=== PATIENT | female | born 1940 | race Hispanic/Latino ===

== ENCOUNTER 2017-07-17 10:39 | Inpatient (IN) | payer MEDICARE ==
[~2017-07-17 10:39] MED LIST: ANCEF/STERILE WATER 2 GM/20 ML 2 GM/20 ML SYRINGE IV NR
[2017-07-17 11:29] LABS: Basophils % (Auto) 0.9 % (0.0-1.8); Eosinophils % (Auto) 1.7 % (0.0-4.3); Hematocrit 49.2 % (30.3-42.9); Hemoglobin 16.3 gm/dl (10.1-14.3); Mean Corpuscular HGB Conc 33 % (30-34); Mean Corpuscular Hemoglobin 29 pg (28-32); Mean Corpuscular Volume 87 fl (79-97); Platelet Count 227 K/mm3 (140-440); Red Blood Count 5.66 M/mm3 (3.65-5.03); Red Cell Distribution Width 14.9 % (13.2-15.2)
[2017-07-17 11:40] LABS: INR 1.06 (0.87-1.13)
[2017-07-17 11:41] LABS: Partial Thromboplastin Time 33.8 Sec. (24.2-36.6)
[2017-07-17 12:00] LABS: BUN/Creatinine Ratio 21.81; Calcium 10.3 mg/dL (8.4-10.2); Chloride 100.6 mmol/L (98-107); Potassium 4.9 mmol/L (3.6-5.0)
[2017-07-17] MEDS ORDERED: NACL 0.9% 1000 ML 1,000 ML ONE (12:17)
[2017-07-17] MEDS: NACL 0.9% 1000 ML 1,000 ML IV SCH (12:18)
[2017-07-17] MEDS ORDERED: HEPARIN/NS 5000 UNIT/500ML(CATH LAB) 1,000 ML IR ONE (12:38)
[2017-07-17] MEDS ORDERED: VERSED ONE (12:38)
[2017-07-17] MEDS ORDERED: SUBLIMAZE ONE (12:39)
[2017-07-17] MEDS ORDERED: XYLOCAINE 2% INFILTRATI ONE (12:39)
[2017-07-17] MEDS ORDERED: ANCEF/STERILE WATER 2 GM/20 ML 2 GM/20 ML SYRINGE IV ONE (12:40)
[2017-07-17] MEDS ORDERED: HEPARIN/NS 5000 UNIT/500ML(CATH LAB) 500 ML IR ONE ×3 (12:56→13:51)
[2017-07-17] MEDS: HEPARIN 10,000 UNITS/10 ML ONE ×3 (13:11→14:22)
[2017-07-17] MEDS ORDERED: CATHFLO ONE (13:52)
[2017-07-17] MEDS: WATER FOR INJ (PF) 20 ML ONE ×2 (14:06→14:09)
[2017-07-17] MEDS ORDERED: NACL 0.9% 50 ML ONE (14:14)
--- NOTE | 2017-07-17 15:19 | Operative Report ---
Operative Report Operative Report: Date of procedure: 07/17/2017 Pre-operative diagnosis: Acute left leg ischemia Post-operative diagnosis: Same Procedure name(s): 1. Ultrasound-guided placement of the needle into the right common femoral artery. 2. Aortogram. 3. Contralateral cannulation of the left popliteal artery. 4. Left leg angiogram. 5. Percutaneous mechanical thrombectomy with CAT6 penumbra device. 6. Percutaneous mechanical thrombectomy and infusion of TPA with power pulse using AngioJet. 7. Balloon angioplasty of the popliteal artery using a 3 x 40 following by 4 x 40 balloon. 8. Balloon angioplasty of the anterior tibial artery using 3 x 40 balloon. 9. Balloon angioplasty of the TP trunk using 3 x 40 balloon. 10. Directional atherectomy of the popliteal artery using Silver Hawk. 11. Balloon angioplasty of the popliteal artery with drug-eluting balloon using 4 x 100 Lutonix balloon. 12. Completion angiogram. 13. Radiologic supervision and interpretation. 14. Closure of the right common femoral artery with 6 American Angio-Seal device. Surgeon: Jose L Gill MD, RPVI [employer]: None Anesthesia: Local with IV sedation. Findings 1. No significant clot noted in the aorta or iliac bifurcation. 2. No significant stenosis noted in bilateral iliac or femoral arteries. 3. No evidence of stenosis or occlusion of the superficial femoral artery on the left. 4. Acute left occluded left popliteal artery. 5. Complete resolution of clot after the thrombectomy. 6. Nonflow limiting dissection of the distal popliteal artery. 7. Intact 3 vessel runoff. 8. Palpable dorsalis pedis and posterior tibial pulse in the left fourth of the end of the procedure. Specimens: none EBL: Minimal IV fluids: 100 mL Urine output: None Disposition: The recovery Indications: Acute occlusion of left lower extremity. Procedure in detail: Patient was brought to the catheterization lab and laid on the table in supine position. After adequate sedation was achieved both groins were prepped and draped in usual sterile fashion. The ultrasound was used to assess the right common femoral artery. It was found to be of adequate caliber without significant calcium deposits. Under ultrasound guidance and micropuncture needle was directed into the common femoral artery. The tip of the needle was visualized inside the artery. The pictures were saved. The micropuncture wire was advanced without resistance. The needle was removed and the Micropuncture introducer was placed. The Bentson wire was advanced into the aorta. The micropuncture sheath was exchanged to a 5 American sheath. The Sos Omni flush catheter was advanced into the aorta. The aortogram was performed. Expected clot of the aortic bifurcation was not found. In fact no significant lesions were noted in aorta or iliac vessels. The contralateral cannulation was achieved using the Bentson wire and the catheter. The catheter was brought down to the level of the common femoral artery. The left lower extremity angiogram was performed. There was significant finding was an occlusion of the distal popliteal artery. The catheter was advanced down to the distal popliteal artery and the runoff pictures were performed. Patient had three- vessel runoff. The 5 American sheath was exchanged to a 6 x 90 destination sheath. The tip of the sheath was brought to the proximal popliteal artery. Patient received 4000 units of intravenous heparin. The 014 wire was used to cross the popliteal occlusion and the wire was directed into anterior tibial artery. The 6 American penumbra device was used to perform clot aspiration over 014 wire. Almost all the clot was able to be removed based on the follow-up angiography. There was an area at the distal popliteal artery that still appeared to be occluded. This catheter was then exchanged to an AngioJet catheter and the TPA was power pulsed into the lesion. After appropriate amount of time to AngioJet thrombectomy was performed. The follow-up angiography revealed absence of any clot however, he then however the distal popliteal dissection. We used a 3 x 40 and 4 x 40 balloons to try to resolve the dissection however the dissection remained. He did not appear to be flow limiting. We used a Silver Hawk to try to cut out the flap. It was partially successful. The flow did improve. It was further treated using a drug-eluting balloon. The final angiogram revealed a good flow through the popliteal segment and the preserve three-vessel runoff. The long 6 American sheath was exchanged to a short 6 American sheath. In the angiogram of the right common femoral artery showed that the patient was admitted with candidate for a closure device. The arteriotomy was closed using a 6 American Angio-Seal. Hemostasis was achieved. Patient develop all possible left dorsalis pedis and posterior tibial pulse. Patient tolerated procedure well. Procedure []
[2017-07-17] MEDS ORDERED: ZOFRAN IV PRN (15:25)
[2017-07-17] MEDS ORDERED: NORCO 5/325 PO PRN (15:25)
[2017-07-17] MEDS ORDERED: HEPARIN/ 0.45% NACL-25,000 UNIT/500 ML 25,000 UNIT/500 ML BAG IV SCH (16:00)
[2017-07-17 16:19] LABS: Hematocrit 47.5 % (30.3-42.9); Hemoglobin 15.3 gm/dl (10.1-14.3)
[2017-07-17 16:47] LABS: Partial Thromboplastin Time < 20.0 Sec. (24.2-36.6)
[2017-07-17] MEDS: ELIQUIS PO SCH (17:24)
--- NOTE | 2017-07-17 19:45 | Event Note ---
Date: 07/17/17 Contacted re: patient Ray. Told patient had hematuria and nurse discontinued heparin drip. Reviewed chart and noted patient had thrombectomy with aspiration thrombectomy device and angiojet. Angiojet causes rhabdomyoglobinuria, which can be common with the device. Told nurse to restart heparin drip. Told nurse to increase IV fluids to 100 mL/ hr. Told nurse to discontinue heparin drip at 10 pm at time of second dose of Eliquis. Told nurse that patient is NOT having hematuria, but she is having myoglobinuria from the angiojet device. This is not the same thing. Nurse verbalized understanding.
[2017-07-17] MEDS ORDERED: NACL 0.9% 1000 ML 1,000 ML IV SCH (20:00)
[2017-07-17] MEDS: XANAX PO SCH (20:31)
[2017-07-18] MEDS: ELIQUIS PO SCH ×2 (00:09→09:27)
[2017-07-18] MEDS: NACL 0.9% 1000 ML 1,000 ML IV SCH (08:02)
--- NOTE | 2017-07-18 08:28 | Vascular Lab Report ---
MISCELLANEOUS VESSEL IDENTIFICATION: COMMENTS ON THE SCAN: The right common femoral artery was identified and under real-time ultrasound guidance was cannulated. IMPRESSION: Successful ultrasound guided arterial cannulation.
[2017-07-18] MEDS: XANAX PO SCH (09:25)
[2017-07-18 09:26] VITALS: BP 110/67
--- NOTE | 2017-07-18 09:40 | Discharge Summary ---
Providers - Providers Date of Admission: 07/17/17 13:33 Date of discharge: 07/18/17 Attending physician: JOSE L GILL 07/17/17 15:40 Consult to Physician [CONS] Routine Consulting Provider: STAR MEDINA Reason For Exam: Cardiology f/u Place consult to:: Notified:: Phone number called:: [phone] Was contact made?: Yes If yes, spoke with:: LEFT MESSAGE Time called:: 16:35 Comment:: HORACE Primary care physician: STAR MEDINA Hospitalization Reason for admission: Left Popliteal artery occlusion Condition: Good Procedures: Date of procedure: 07/17/2017 Pre-operative diagnosis: Acute left leg ischemia Post-operative diagnosis: Same Procedure name(s): 1. Ultrasound-guided placement of the needle into the right common femoral artery. 2. Aortogram. 3. Contralateral cannulation of the left popliteal artery. 4. Left leg angiogram. 5. Percutaneous mechanical thrombectomy with CAT6 penumbra device. 6. Percutaneous mechanical thrombectomy and infusion of TPA with power pulse using AngioJet. 7. Balloon angioplasty of the popliteal artery using a 3 x 40 following by 4 x 40 balloon. 8. Balloon angioplasty of the anterior tibial artery using 3 x 40 balloon. 9. Balloon angioplasty of the TP trunk using 3 x 40 balloon. 10. Directional atherectomy of the popliteal artery using Silver Hawk. 11. Balloon angioplasty of the popliteal artery with drug-eluting balloon using 4 x 100 Lutonix balloon. 12. Completion angiogram. 13. Radiologic supervision and interpretation. 14. Closure of the right common femoral artery with 6 Divehi Angio-Seal device. Surgeon: Jose L Gill MD, RPVI Executive Officer: None Anesthesia: Local with IV sedation. Findings 1. No significant clot noted in the aorta or iliac bifurcation. 2. No significant stenosis noted in bilateral iliac or femoral arteries. 3. No evidence of stenosis or occlusion of the superficial femoral artery on the left. 4. Acute left occluded left popliteal artery. 5. Complete resolution of clot after the thrombectomy. 6. Nonflow limiting dissection of the distal popliteal artery. 7. Intact 3 vessel runoff. 8. Palpable dorsalis pedis and posterior tibial pulse in the left fourth of the end of the procedure. Specimens: none EBL: Minimal IV fluids: 100 mL Urine output: None Disposition: The recovery Indications: Acute occlusion of left lower extremity. Hospital course: The patient underwent mech/pharm thrombolysis and angioplasty of the left popliteal artery. She did very well afterwards. Disposition: DC-01 TO HOME OR SELFCARE - Discharge Diagnoses (1) Arterial embolism and thrombosis of lower extremity Status: Resolved Core Measure Documentation - Palliative Care Palliative Care/ Comfort Measures: Not Applicable - Core Measures Any of the following diagnoses?: none Exam - Constitutional Vitals: Temp Pulse Resp BP Pulse Ox 97.6 F 89 18 110/67 96 07/18/17 08:00 07/18/17 08:00 07/18/17 08:00 07/18/17 08:00 07/18/17 08:00 Plan Activity: advance as tolerated Weight Bearing Status: Weight Bear as Tolerated Diet: low cholesterol Wound: open to air, keep clean and dry Follow up with: STAR MEDINA MD [Primary Care Provider] - 7 Days JOSE L GILL MD [Staff Physician] - 14 Days Prescriptions: HYDROcodone/APAP 5-325 [[place] 5-325 mg TAB] 1 each PO Q4H PRN #10 tablet PRN Reason: Pain, Moderate (4-6)
--- NOTE | 2017-07-18 09:57 | Progress Note ---
Assessment and Plan Ok for D/c today. She will go home on Eliquis as before. She needs to ambulate once around the unit with assistance prior to d/c. Subjective Date of service: 07/18/17 Interval history: s/p LLE angiography with thrombolysis and angioplasty. Feels well. Left foot feels much better. She has walked to the bathroom three times and has had good PO intake. Hematuria from last night is resolving. Objective - Constitutional Vitals: Vital Signs - 12hr 07/18/17 07/18/17 02:24 08:00 Temperature 97.5 F L 97.6 F Pulse Rate 88 89 Respiratory 16 18 Rate Blood Pressure 104/64 110/67 [Left] O2 Sat by Pulse 94 96 Oximetry General appearance: Present: no acute distress, well-nourished - EENT ENT: hearing intact, clear oral mucosa - Neck Neck: supple, normal ROM - Respiratory Respiratory effort: normal Extremities: pulses intact (Palpable left DP and PT. Palpable Rt DP. Rt Groin wound intact.), No edema, normal color, Full ROM - Labs CBC & Chem 7: 07/17/17 15:51 07/17/17 11:25 Labs: Abnormal lab results 07/17/17 07/17/17 07/17/17 Range/Units 11:25 11:25 15:51 RBC 5.66 H (3.65-5.03) M/mm3 Hgb 16.3 H 15.3 H (10.1-14.3) gm/dl Hct 49.2 H 47.5 H (30.3-42.9) % Turner % (Auto) 10.7 H (0.0-7.3) % PT (12.2-14.9) Sec. INR (0.87-1.13) APTT (24.2-36.6) Sec. BUN 24 H (7-17) mg/dL Calcium 10.3 H (8.4-10.2) mg/dL 07/17/17 Range/Units 15:51 RBC (3.65-5.03) M/mm3 Hgb (10.1-14.3) gm/dl Hct (30.3-42.9) % Turner % (Auto) (0.0-7.3) % PT 15.1 H (12.2-14.9) Sec. INR 1.20 H (0.87-1.13) APTT < 20.0 L (24.2-36.6) Sec. BUN (7-17) mg/dL Calcium (8.4-10.2) mg/dL
[2017-07-18] MEDS ORDERED: PEPCID PO SCH (10:00)
[2017-07-18] MEDS ORDERED: NON-FORMULARY (Ranitidine Hcl [Zantac 150 Mg Tab] 150 MG) PO SCH (10:00)
[2017-07-18] MEDS ORDERED: NORVASC PO SCH (10:00)
[2017-07-18] MEDS ORDERED: LASIX PO SCH ×2 (10:00)
[2017-07-18] MEDS ORDERED: [UNRECOGNIZED DRUG - OTHER] PO SCH (10:00)
[2017-07-18] MEDS ORDERED: NON-FORMULARY (Potassium Chloride [Potassium Chloride] 10 MEQ) PO SCH (10:00)
[2017-07-18] MEDS ORDERED: CHOLECALCIFEROL PO SCH (10:00)
[2017-07-18] MEDS ORDERED: VITAMIN D3 PO SCH ×2 (10:00)
[2017-07-18] MEDS ORDERED: TOPROL XL PO SCH (10:00)
[2017-07-18] MEDS ORDERED: K-DUR PO SCH (10:00)
== END 2017-07-18 13:27 | disposition home health service (06) | DRG 272 ==
LOC: CATH 10:39 → CC2 13:33
PROVIDERS: ADMIT Surgery Vascular Surgery; ATTEND Surgery Vascular Surgery
PROC: 04CQ3ZZ Extirpation of Matter from Left Anterior Tibial Artery, Percutaneous Approach (ICD-10-PCS; principal; 2017-07-17)
PROC: 04CN3ZZ Extirpation of Matter from Left Popliteal Artery, Percutaneous Approach (ICD-10-PCS; principal; 2017-07-17)
PROC: 047Q3ZZ Dilation of Left Anterior Tibial Artery, Percutaneous Approach (ICD-10-PCS; 2017-07-17)
PROC: 047N3Z1 Dilation of Left Popliteal Artery using Drug-Coated Balloon, Percutaneous Approach (ICD-10-PCS; 2017-07-17)
PROC: 3E05317 Introduction of Other Thrombolytic into Peripheral Artery, Percutaneous Approach (ICD-10-PCS; 2017-07-17)
DX: I74.3 Embolism and thrombosis of arteries of the lower extremities (principal); R31.9 Hematuria, unspecified; Z88.6 Allergy status to analgesic agent; Z88.8 Allergy status to other drugs, medicaments and biological substances
CPT/HCPCS: 36415; 37184; 37225; 37228; 76937; 80048; 85014; 85018; 85025; 85049; 85610; 85730; C1714; C1725; C1757; C1760; C1769; C1887; C1894; C2623; J0690; J1644; J2250; J2405; J2997; J3010; J7030; Q9967